=== PATIENT | male | born 1975 | race Caucasian/White ===

== ENCOUNTER 2018-04-23 01:07 | Day surgery (SDC) | payer OTHER ==
--- NOTE | 2018-04-16 10:30 | EKG ---
FACILITY: [facility] - [place] PATIENT NAME: LUPILLO ZEPEDA : [id number] MR: [id number] V: [id number] EXAM DATE: ORDERING PHYSICIAN: KRISTINA OLIVAS TECHNOLOGIST: Test Reason : pre-op Blood Pressure : / mmHG Vent. Rate : 068 BPM Atrial Rate : 068 BPM P-R Int : 166 ms QRS Dur : 100 ms QT Int : 370 ms P-R-T Axes : 069 068 044 degrees QTc Int : 393 ms Normal sinus rhythm Normal ECG When compared with ECG of 13-SEP-2012 12:34, No significant change was found Confirmed by Diallo Irby ([id number]) on 04/16/2018 6:30:30 PM Referred By: Confirmed By:Diallo Rodriguez
--- NOTE | 2018-04-16 11:08 | RADIOLOGY IMAGING REPORT ---
FACILITY: [facility] - [place] PATIENT NAME: Prosper Willis : 1975 MR: [id number] V: [id number] EXAM DATE: ORDERING PHYSICIAN: KRISTINA OLIVAS TECHNOLOGIST: Location: [facility] Patient: Prosper Willis : 1975 Visit/Account:[id number] Date of Sevice: 04/12/2018 Exam type: CERVICAL SPINE 2 OR 3 VIEW History: RHUMATOID ARTHRITIS Comparison: June 21, 2013. Findings: Flexion, extension and neutral lateral views of cervical spine were submitted demonstrating no abnorm al motion at C1-2. Incidentally noted are moderate spondylotic changes at C5-6 and C6-7. No evidenc e of prevertebral soft tissue swelling IMPRESSION: 1. No abnormal motion at C1-2 Report Dictated By: Ana Rosa MD at 04/16/2018 11:01 AM Report E-Signed By: Ana Rosa MD at 04/16/2018 11:03 AM WSN:[email or web address]
[~2018-04-23] VITALS: Ht 188 cm; Wt 78.0 kg
[~2018-04-23 01:07] MED LIST: CEPH-13 PO; CHOL100060 PO; FOLI-68 PO; GLUC100026 PO; HYDR-385 PO; MELO-150 PO; METH2.5T43 PO; MULT-1081 PO; PER PO; TRAM-420 PO
[2018-04-23] MEDS ORDERED: ceFAZolin(*) 2GM/D5W 50ML 50 ML IVPB ONE (08:10)
[2018-04-23] MEDS: LIDOCAINE/SOD BICARB 8.4% SYR ID ONE ×2 (08:49→09:00)
[2018-04-23 08:54] VITALS: BP 118/86
[2018-04-23] MEDS ORDERED: FAMOTIDINE 20 MG TAB PO ONE (09:00)
[2018-04-23] MEDS ORDERED: NORMOSOL R SOLN(*) 1000 ML BAG 1,000 ML IV PRN (09:00)
[2018-04-23] MEDS ORDERED: MIDAZOLAM 2 MG/2 ML VIAL IVP PRN (09:00)
[2018-04-23] MEDS ORDERED: LIDOCAINE MPF 1% 5 ML VIAL ONE (09:56)
[2018-04-23] MEDS ORDERED: PROPOFOL EMUL(*) 10MG/ML 20 ML 20 ML ONE (09:56)
[2018-04-23] MEDS ORDERED: DEXAMETHASONE SOD PHOS 10MG/ML ONE (09:56)
[2018-04-23] MEDS ORDERED: ONDANSETRON 4 MG/2 ML VIAL ONE (09:56)
[2018-04-23] MEDS ORDERED: fentaNYL CITR 100 MCG/2 ML AMP ONE ×2 (09:56→11:13)
[2018-04-23] MEDS ORDERED: BACITRACIN OINT 15 GM TUBE TP ONE (09:56)
[2018-04-23] MEDS ORDERED: OXYMETAZOLINE SPRAY 15 ML BTL ONE (09:56)
[2018-04-23] MEDS ORDERED: NS(*) 0.9% 250 ML BAG 250 ML ONE (09:57)
[2018-04-23] MEDS ORDERED: LIDO/EPI 1% MDV 1:100,000 20ML INFIL ONE (09:57)
[2018-04-23] MEDS ORDERED: MUPIROCIN 2% OINT 22 GM TUBE TP ONE (09:57)
[2018-04-23] MEDS ORDERED: LIDOCAINE 2% JELLY 5 ML TUBE ONE (10:00)
[2018-04-23] MEDS ORDERED: KETAMINE HCL-NS 50 MG/5 ML SYR ONE (10:03)
[2018-04-23] MEDS: LABETALOL HCL 100 MG/20ML VIAL ONE ×2 (11:32→11:35)
[2018-04-23] MEDS ORDERED: APAP/HYDROCODONE 325/5 TAB ONE (12:04)
[2018-04-23 12:19] VITALS: BP 133/93
[2018-04-23 12:20] VITALS: BP 131/94
--- NOTE | 2018-04-23 13:46 | OPERATIVE REPORT 1 ---
EVENT DATE: April 23, 2018 SURGEON: Adeel Rand MD ANESTHESIOLOGIST: Rk Stewart MD ANESTHESIA: LMA PREOPERATIVE DIAGNOSIS 1. Nasal septal deviation. 2. Bilateral inferior turbinate hypertrophy. POSTOPERATIVE DIAGNOSIS 1. Nasal septal deviation. 2. Bilateral inferior turbinate hypertrophy. PROCEDURE PERFORMED 1. Septoplasty. 2. Submucous resection of bilateral inferior turbinates. INDICATION Please refer to the preoperative note. DESCRIPTION OF PROCEDURE The patient was positively identified in the preoperative area. He was accompanied there by his . Risks again explained, including but are not limited to bleeding, infection, nasal septal perforation, and those associated with anesthesia. He acknowledged understanding those risks. He was then brought back to the operative suite, placed supine on the operative table and anesthesia was administered. Once asleep, the patient was positioned, then prepped and draped in the usual sterile fashion. Initially I decongested the nose by injecting approximately 10 cc of 1% Lidocaine with Epinephrine into the bilateral anterior nasal septal mucosa and along the face of the bilateral inferior turbinates. Both nasal cavities were subsequently packed with cottonoids containing Afrin solution. These were subsequently removed and nasal endoscopy was performed. This was notable for a right inferior septal spur and a left mid septal deviation. A Feliciano incision was then made into the left anterior nasal septal mucosa. Subperichondrial flap was raised. An incision was then made to the anterior nasal septal cartilage. A contralateral flap was raised. The deviated portion of the patient's septal cartilage and bone was then removed. The Blackwell incision was then reapproximated with interrupted Chronic stitch. I then addressed the inferior turbinates. A stab incision was made at the base of the left inferior turbinate. A caudal elevator was utilized to elevate the mucosa off the underlying bone. A submucous resection was then performed with a turbinate blade with a microdebrider. The stab incision was then cauterized with Bovie electrocautery. I then addressed the contralateral inferior turbinate in a similar fashion. The patient was then turned to anesthesia for emergence. ESTIMATED BLOOD LOSS 25 cc. COMPLICATIONS None. MTDD
== END 2018-04-23 12:19 | disposition home or self-care (01) ==
LOC: OR 01:07
PROVIDERS: ATTEND Otolaryngology
DX: J34.2 Deviated nasal septum (principal); J34.3 Hypertrophy of nasal turbinates
CPT/HCPCS: 30140; 30520; 72040; 93005; J1100; J2001; J2405; J2704; J3010; J3490; J7050; J0690

== ENCOUNTER 2018-04-29 11:31 | Emergency (ER) | payer OTHER ==
[2018-04-29] MEDS ORDERED: ENT KIT ONE (11:45)
--- NOTE | 2018-04-29 12:29 | ER Report ---
History and Physical Time Seen By MD: 12:02 Hx. of Stated Complaint: PT HAS BEEN HAVING A NOSE BLEED SINCE 8AM THIS MORNING. PT STATES HE JUST HAD STENTS PLACED BY DR. SUSY PONCE/POOJA CHIEF COMPLAINT: Nosebleed HISTORY OF PRESENT ILLNESS: 42-year-old male patient presents to emergency room with complaint of nosebleed. Patient states that this been going on spot a 30 this morning. Patient states he had a deviated septal repair last Monday. He does have a stent and a tube placed which is going to be removed tomorrow. Patient states that he just woke up with a runny nose. He denies having any fevers or chills. Patient states he has felt lightheaded, he is having a lot of blood going down the back of his throat. He states that he has not had any vomiting, however he has been nauseated. Allergies: Coded Allergies: No Known Drug Allergies (Unverified , 04/12/18) Home Meds Reported Medications Tramadol Hcl (TRAMADOL HCL) 50 Mg Tablet, 50-100 MG PO Q4-6H PRN for PAIN, TAB 03/27/18 Multivitamin (MULTI-DAY VITAMINS) 1 Each Tablet, 1 EACH PO QDAY 05/14/15 Folic Acid (FOLIC ACID) 1 Mg Tablet, 1 MG PO QDAY, TAB 05/14/15 Methotrexate Sodium (METHOTREXATE) 2.5 Mg Tablet, 6 TAB PO QWK 05/14/15 Glucosamine Sulfate 2KCL (GLUCOSAMINE) 1,000 Mg Tablet, 1500 MG PO DAILY 09/13/12 Meloxicam (Mobic) 15 Mg Tablet, 15 MG PO DAILY 09/13/12 Past Medical/Surgical History Patient has a past medical history of rheumatoid arthritis, back pain, deviated septum, alcohol use. Patient surgical history on left fifth and fourth fingers, left knee, right knee, laminectomy. Reviewed Nurses Notes: Yes Hx Smoking: Yes Smoking Status: Former Smoker Exposure to Second Hand Smoke?: No Hx Substance Use Disorder: No Hx Alcohol Use: Yes Constitutional Vital Sign - Last 24 Hours 04/29/18 04/29/18 12:00 13:30 Temp 98.2 Pulse 90 74 Resp 16 16 B/P (MAP) 127/101 132/99 (110) Pulse Ox 90 90 O2 Delivery Room Air Physical Exam General appearance: Alert no distress. Respiratory: Chest is non tender, lungs are clear to auscultation. Cardiac: Regular rate and rhythm ENT: Patient has blood coming out of the nares, right nostril is swollen due to low blood clot. DIFFERENTIAL DIAGNOSIS: After history and physical exam differential diagnosis was considered for nosebleed. Medical Decision Making ED Course/Re-evaluation ED Course Patient was admitted to an exam room, history and physical were obtained. Differential diagnoses were considered. On examination patient does have blood that is dripping out of his nose, as well as a large clot which is formed in the right nare. Patient states he is unable to blow his nose secondary to recent surgery. I did call and discuss the case with Dr. Rand, ENT who performed surgery last Monday. His recommendation was to pull out as much of the clot as possible, then use Josh-Synephrine to get the bleeding under control. I did use a ring forceps was able to get out a good amount of clot. He was in sprayed with Josh-Synephrine. Patient had improvement in the bleeding. He does have a persistent small drip of blood. As we watched him over the course of an hour and half he did have the troponin which continued, however did seem to clear out being more clear than blood. Patient states he feels ready to go home. He states he's no longer feeling lightheaded, he says that he is feeling better feels he can tolerate the bleeding home. Patient will be discharged home to follow-up with Dr. Rand tomorrow. Patient and his verbalized understanding and agreement with plan. Decision to Disposition Date: Apr 29, 2018 Decision to Disposition Time: 13:22 Depart Departure Latest Vital Signs Vital Signs Date Time Temp Pulse Resp B/P (MAP) Pulse Ox O2 Delivery O2 Flow Rate FiO2 04/29/18 13:30 74 16 132/99 (110) 90 04/29/18 12:00 98.2 Room Air Impression: Primary Impression: Epistaxis Condition: Improved Disposition: HOME OR SELF-CARE Patient Instructions: Nosebleed (ED) Additional Instructions: Increase fluid intake. You can try to use some saline on your nose. Limit activity by pain. Return to the ER if condition worsens. Take Tylenol as needed for pain. Use the Josh-synephrine if there is more serious bleeding. I expect that the drainage that we have now will stop in the next 3-4 hours. DANIEL DARLING Apr 29, 2018 12:29
[2018-04-29 13:30] VITALS: BP 132/99
[2018-04-29] MEDS ORDERED: PHENYLEPHRINE 0.5% 15 ML BTL ONE (14:00)
== END 2018-04-29 13:54 | disposition home or self-care (01) ==
LOC: ER 12:17
DX: R04.0 Epistaxis (principal)
CPT/HCPCS: 99282